=== PATIENT | male | born 1990 | race Caucasian/White ===

== ENCOUNTER 2020-09-24 15:43 | Emergency (ER) | payer OTHER ==
[2020-09-24] MEDS ORDERED: IBUPROFEN800 MG PO (16:55)
== END 2020-09-24 17:44 | disposition home or self-care (01) ==
LOC: FER 15:43
DX: S90.32XA Contusion of left foot, initial encounter (principal); I10 Essential (primary) hypertension; Z23 Encounter for immunization; W20.8XXA Other cause of strike by thrown, projected or falling object, initial encounter
CPT/HCPCS: 73630; 90471; 90715